=== PATIENT | male | born 1980 | race African-American/Black ===

== ENCOUNTER 2022-06-05 16:51 | Emergency (ER) | payer SELFPAY ==
[2022-06-05 18:51] LABS: CORONAVIRUS COVID-19 NAA NEGATIVE (NEGATIVE); INFLUENZA A NAA POSITIVE (NEGATIVE); INFLUENZA B NAA NEGATIVE (NEGATIVE)
== END 2022-06-05 20:08 | disposition home or self-care (01) ==
LOC: MW.ED 16:51
DX: J10.1 Influenza due to other identified influenza virus with other respiratory manifestations (principal); Z20.822 Contact with and (suspected) exposure to COVID-19
CPT/HCPCS: 0240U; 93005; 99284